=== PATIENT | female | born 1975 | race Caucasian/White ===

== ENCOUNTER 2020-12-07 15:45 | Emergency (ER) | payer MEDICAID ==
[~2020-12-07] VITALS: Ht 160 cm; Wt 86.4 kg
[2020-12-07 15:52] VITALS: BP 153/117
[2020-12-07] MEDS ORDERED: METF-960 PO (15:54)
[2020-12-07] MEDS ORDERED: LISI-662 PO (15:54)
== END 2020-12-07 17:54 | disposition home or self-care (01) ==
LOC: EMS 15:45
DX: K04.7 Periapical abscess without sinus (principal); K02.9 Dental caries, unspecified; I10 Essential (primary) hypertension; E11.9 Type 2 diabetes mellitus without complications; Z88.5 Allergy status to narcotic agent; Z79.899 Other long term (current) drug therapy
CPT/HCPCS: 99283; Z7502